=== PATIENT | male | born 1955 | race Caucasian/White ===

== ENCOUNTER 2020-12-14 09:09 | Emergency (ER) | payer BC ==
[2020-12-14] MEDS ORDERED: Aspirin 81 MG Tab.Chew PO ONE (09:30)
[2020-12-14] MEDS ORDERED: Sodium Chloride 0.9% 10 ML Syringe FLUSH PRN (09:30)
[2020-12-14] MEDS: Nitroglycerin 0.4 MG Tab.SL SL PRN ×2 (09:35→09:45)
--- NOTE | 2020-12-14 09:36 | EDM.PDOC ---
ED HPI GENERAL MEDICAL PROBLEM - General Chief Complaint: Chest Pain Stated Complaint: SOB Time Seen by Provider: 12/14/20 09:26 Source of Information: Reports: Patient - History of Present Illness INITIAL COMMENTS - FREE TEXT/NARRATIVE: Caesar is a 65 y/o male who presents to the ER with complaints of chest pain. He was sitting in buddhism this AM and report 4 episodes of midsternal chest pain where he got sweaty and nauseated. The pain lasted 15-45 seconds each time. He reports the pain was worse while in buddhism, but activity did not bring on more pain. He reports now in the ER that he has "just a little discomfort" in his chest, but nothing like before. He did have an angiogram in February 2020 at [facility] and was advised that he had 1 vessel that was 100% blocked and 3 others were 30% blocked, but to his knowledge no stents were placed. - Related Data Allergies Allergy/AdvReac Type Severity Reaction Status Date / Time No Known Allergies Allergy Verified 12/14/20 09:34 Home Meds: Home Meds Aspirin [Adult Low Dose Aspirin EC] 81 mg PO DAILY 07/06/18 [History] Omeprazole 40 mg PO DAILY 07/06/18 [History] Oxybutynin Chloride [Ditropan Xl] 10 mg PO DAILY 07/06/18 [History] PARoxetine HCL [Paroxetine HCl] 30 mg PO DAILY 07/06/18 [History] Simvastatin 20 mg PO DAILY 07/06/18 [History] rOPINIRole [Requip] 1 mg PO TID 07/06/18 [History] Past Medical History Cardiovascular History: Reports: High Cholesterol Gastrointestinal History: Reports: Diverticulosis, GI Bleed Review of Systems - Review of Systems Review Of Systems: See Below Constitutional: Reports: No Symptoms Eyes: Reports: No Symptoms Ears: Reports: No Symptoms Nose: Reports: No Symptoms Mouth/Throat: Reports: No Symptoms Respiratory: Reports: No Symptoms Cardiovascular: Reports: Chest Pain GI/Abdominal: Reports: Nausea Genitourinary: Reports: No Symptoms Musculoskeletal: Reports: No Symptoms Skin: Reports: Diaphoresis Neurological: Reports: No Symptoms Psychiatric: Reports: No Symptoms ED EXAM, GENERAL - Physical Exam Exam: See Below General Appearance: Alert, WD/WN, No Apparent Distress (Elderly male.) Ears: Hearing Grossly Normal Nose: Normal Inspection, Normal Mucosa Throat/Mouth: Normal Inspection, Normal Lips, Normal Voice Head: Atraumatic, Normocephalic Neck: Normal Inspection, Supple Respiratory/Chest: No Respiratory Distress, Lungs Clear, Chest Non-Tender Cardiovascular: Normal Peripheral Pulses, Regular Rate, Rhythm, No Murmur GI/Abdominal: Soft, Non-Tender (Male) Exam: Deferred Rectal (Males) Exam: Deferred Back Exam: Normal Inspection Extremities: Normal Inspection, Normal Range of Motion, Normal Capillary Refill Neurological: Alert, Oriented, CN II-XII Intact Psychiatric: Normal Affect, Normal Mood Skin Exam: Warm, Dry, Intact, Normal Color, No Rash Lymphatic: No Adenopathy #1 Interpretation EKG Date: 12/14/20 Time: 09:12 Rhythm: NSR Rate (Beats/Min): 59 [place]: Normal P-Wave: Present QRS: Normal ST-T: Normal QT: Normal Course - Vital Signs Text/Narrative:: 0905 The patient was seen by the INTERIOR HORTICULTURIST. Labs, CXR, and EKG ordered. He was given [id number] po and Nitro 0.4mg SL. 1005 Patient has now had Nitro x 2 and reports chest pain in gone. Labs reviewed. Trop neg, EKG=NSR. 1010 [facility] contacted and Dr Conti, Hospitalist electrical and instrumentation mechanic, accepted the patient for direct admission to [facility]. Will plan transfer to [place] by [facility]. Patient remained stable and pain free until departing the ER with EMS. Last Recorded V/S: Last Vital Signs Temp 36.1 C 12/14/20 09:10 Pulse 62 12/14/20 10:01 Resp 11 L 12/14/20 09:10 BP 125/79 12/14/20 10:01 Pulse Ox 95 12/14/20 09:10 - Orders/Labs/Meds Orders: Active Orders 24 hr Category Date Time Status Cardiac Monitoring [RC] . DIRECTED Care 12/14/20 09:30 Active EKG Documentation Completion [RC] STAT Care 12/14/20 09:30 Active Oxygen Therapy [RC] PRN Care 12/14/20 09:31 Active Pulse Oximetry [RC] CONTINUOUS Care 12/14/20 09:31 Active Nothing per Oral Now Diet [DIET] Diet 12/14/20 Lunch Ordered Chest 1V Frontal [CR] Stat Exams 12/14/20 09:32 Taken UA W/MICROSCOPIC [URIN] Stat Lab 12/14/20 09:30 Ordered Nitroglycerin [Nitrostat] Med 12/14/20 09:30 Active 0.4 mg SL Q5M PRN Sodium Chloride 0.9% [Saline Flush] Med 12/14/20 09:30 Active 10 ml FLUSH ASDIRECTED PRN Saline Lock Insert [OM.PC] Stat Oth 12/14/20 09:30 Ordered Resuscitation Status Routine Resus Stat 12/14/20 09:30 Ordered Medication Orders Nitroglycerin (Nitroglycerin 0.4 Mg Tab.Sl) 0.4 mg SL Q5M PRN PRN Reason: Chest Pain Stop: 12/15/20 09:31 Last Admin: 12/14/20 09:35 Dose: 0.4 mg Documented by: YOLETTE Sodium Chloride (Sodium Chloride 0.9% 10 Ml Syringe) 10 ml FLUSH ASDIRECTED PRN PRN Reason: Keep Vein Open Labs: Laboratory Tests 12/14/20 12/14/20 12/14/20 Range/Units 09:20 09:20 09:20 WBC 5.7 (4.0-10.0) x10^3/uL RBC 4.82 (4.5-6.0) x10^6/uL Hgb 15.1 D (14.0-18.0) g/dL Hct 42.4 (40.0-52.0) % MCV 88.0 D (78.0-93.0) fL MCH 31.3 (26.0-32.0) pg MCHC 35.6 (32.0-36.0) g/dL RDW Coeff of Sergio 14.1 (10.0-15.0) % Plt Count 225 (130-400) x10^3/uL Neut % (Auto) 57.7 (50.0-80.0) % Lymph % (Auto) 32.2 (25.0-50.0) % [place] % (Auto) 7.6 (2.0-11.0) % Eos % (Auto) 2.1 (0.0-4.0) % Baso % (Auto) 0.4 (0.2-1.2) % PT (9.9-12.5) SEC INR (2.0-3.5) APTT 23.0 L (25.6-32.8) SEC Sodium 143 (136-145) mmol/L Potassium 4.0 (3.5-5.1) mmol/L Chloride 106 (98-107) mmol/L Carbon Dioxide 26 (21-32) mmol/L Anion Gap 15.0 (5-15) mmol/L BUN 17 (7-18) mg/dL Creatinine 0.9 (0.70-1.30) mg/dL Est Cr Clr Drug Dosing TNP Estimated GFR (MDRD) > 60 Glucose 132 H (70-99) mg/dL Calcium 8.4 L (8.5-10.1) mg/dL Corrected Calcium 8.8 (8.5-10.1) mg/dL Magnesium 1.5 L (1.8-2.4) mg/dL Total Bilirubin 0.7 (0.2-1.0) mg/dL AST 22 (15-37) U/L ALT 31 (16-63) U/L Alkaline Phosphatase 70 (46-116) U/L Troponin I High Sens 10 (<=76) ng/L C-Reactive Protein < 0.2 (<=0.9) mg/dL Total Protein 7.0 (6.4-8.2) g/dL Albumin 3.5 (3.4-5.0) g/dL Globulin 3.5 Albumin/Globulin Ratio 1.00 // Range/Units 09:20 WBC (4.0-10.0) x10^3/uL RBC (4.5-6.0) x10^6/uL Hgb (14.0-18.0) g/dL Hct (40.0-52.0) % MCV (78.0-93.0) fL MCH (26.0-32.0) pg MCHC (32.0-36.0) g/dL RDW Coeff of Sergio (10.0-15.0) % Plt Count (130-400) x10^3/uL Neut % (Auto) (50.0-80.0) % Lymph % (Auto) (25.0-50.0) % [place] % (Auto) (2.0-11.0) % Eos % (Auto) (0.0-4.0) % Baso % (Auto) (0.2-1.2) % PT 10.0 (9.9-12.5) SEC INR 0.9 L (2.0-3.5) APTT (25.6-32.8) SEC Sodium (136-145) mmol/L Potassium (3.5-5.1) mmol/L Chloride (98-107) mmol/L Carbon Dioxide (21-32) mmol/L Anion Gap (5-15) mmol/L BUN (7-18) mg/dL Creatinine (0.70-1.30) mg/dL Est Cr Clr Drug Dosing Estimated GFR (MDRD) Glucose (70-99) mg/dL Calcium (8.5-10.1) mg/dL Corrected Calcium (8.5-10.1) mg/dL Magnesium (1.8-2.4) mg/dL Total Bilirubin (0.2-1.0) mg/dL AST (15-37) U/L ALT (16-63) U/L Alkaline Phosphatase (46-116) U/L Troponin I High Sens (<=76) ng/L C-Reactive Protein (<=0.9) mg/dL Total Protein (6.4-8.2) g/dL Albumin (3.4-5.0) g/dL Globulin Albumin/Globulin Ratio Meds: Medications Generic Name Dose Route Start Last Admin Trade Name Freq PRN Reason Stop Dose Admin Nitroglycerin 0.4 mg 12/14/20 09:30 12/14/20 09:35 Nitroglycerin 0.4 Mg Tab.Sl SL 12/15/20 09:31 0.4 mg Q5M PRN Administration Chest Pain Sodium Chloride 10 ml 12/14/20 09:30 Sodium Chloride 0.9% 10 Ml Syringe FLUSH ASDIRECTED PRN Keep Vein Open Discontinued Medications Generic Name Dose Route Start Last Admin Trade Name Freq PRN Reason Stop Dose Admin Aspirin 324 mg 12/14/20 09:30 12/14/20 09:12 Aspirin 81 Mg Tab.Chew PO 12/14/20 09:31 324 mg ONETIME ONE Administration Departure - Departure Time of Disposition: 10:14 Disposition: DC/Tfer to Acute Hospital 02 Condition: Good Clinical Impression: Angina at rest, Hx of coronary artery disease Chest pain Qualifiers: Chest pain type: unspecified Qualified Code(s): R07.9 - Chest pain, unspecified - Discharge Information Referrals: PCP,Not In Area [Primary Care Provider] - Forms: ED Department Discharge, Interfacility Transfer [facility] Sepsis Event Note (ED) - Evaluation Sepsis Screening Result: No Definite Risk - Focused Exam Vital Signs: Vital Signs Temp Pulse Resp BP BP Pulse Ox Pulse Ox 12/14/20 10:01 62 125/79 12/14/20 09:53 61 140/75 12/14/20 09:35 163/84 H 12/14/20 09:10 36.1 C 60 11 L 163/84 H 94 L 95 - My Orders Last 24 Hours: My Active Orders 12/14/20 09:30 Cardiac Monitoring [RC] . DIRECTED EKG Documentation Completion [RC] STAT UA W/MICROSCOPIC [URIN] Stat Nitroglycerin [Nitrostat] 0.4 mg SL Q5M PRN Sodium Chloride 0.9% [Saline Flush] 10 ml FLUSH ASDIRECTED PRN Saline Lock Insert [OM.PC] Stat Resuscitation Status Routine 12/14/20 09:31 Oxygen Therapy [RC] PRN Pulse Oximetry [RC] CONTINUOUS 12/14/20 09:32 Chest 1V Frontal [CR] Stat 12/14/20 Lunch Nothing per Oral Now Diet [DIET] - Assessment/Plan Last 24 Hours: My Active Orders 12/14/20 09:30 Cardiac Monitoring [RC] . DIRECTED EKG Documentation Completion [RC] STAT UA W/MICROSCOPIC [URIN] Stat Nitroglycerin [Nitrostat] 0.4 mg SL Q5M PRN Sodium Chloride 0.9% [Saline Flush] 10 ml FLUSH ASDIRECTED PRN Saline Lock Insert [OM.PC] Stat Resuscitation Status Routine 12/14/20 09:31 Oxygen Therapy [RC] PRN Pulse Oximetry [RC] CONTINUOUS 12/14/20 09:32 Chest 1V Frontal [CR] Stat 12/14/20 Lunch Nothing per Oral Now Diet [DIET] Assessment:: 1)Chest Pain 2)Angina at Rest 3)Hx CAD Plan: -Transfer to [facility] to Dr Conti via [facility]
[2020-12-14 09:51] LABS: CHLORIDE,CL 106 mmol/L (98-107); SODIUM,NA 143 mmol/L (136-145)
--- NOTE | 2020-12-14 10:31 | CR ---
[id number] RAD/RAD Chest PA or AP 1V EXAM: SINGLE VIEW CHEST. INDICATION: CHEST PAIN COMPARISON: NO PREVIOUS SIMILAR EXAM IS AVAILABLE FINDINGS: The lungs are clear The cardiac silhouette is normal The regional bones and soft tissues are unremarkable IMPRESSION: NO PNEUMONIA OR EDEMA Levi Lennon MD 12/14/20 [id number] Thank you for allowing us to participate in the care of your patient.
== END 2020-12-14 12:34 | disposition short-term general hospital (02) ==
LOC: VM.ED 09:09
DX: I20.9 Angina pectoris, unspecified (principal); I25.10 Atherosclerotic heart disease of native coronary artery without angina pectoris; E78.00 Pure hypercholesterolemia, unspecified; I10 Essential (primary) hypertension; Z79.82 Long term (current) use of aspirin; Z79.899 Other long term (current) drug therapy
CPT/HCPCS: 36415; 71045; 80053; 83735; 84484; 85025; 85610; 85730; 86140; 93005; 94760; 99285-25; A9270-GY